=== PATIENT | male | born 1990 | race Caucasian/White ===

== ENCOUNTER 2017-12-07 11:05 | Emergency (ER) | payer MEDICAID ==
[~2017-12-07] VITALS: Ht 165.1 cm; Wt 69.0 kg
[2017-12-07] MEDS ORDERED: IPRATROPIUM/ALBUTEROL 0.5-3(2.5)MG/3ML NEB HHN ONE (12:00)
[2017-12-07] MEDS ORDERED: AZITHROMYCIN 500 MG TABLET PO ONE (12:00)
[2017-12-07] MEDS ORDERED: IBUPROFEN 600MG TABLET PO ONE (12:00)
[2017-12-07] MEDS ORDERED: PREDNISONE 20MG TABLET PO ONE (12:00)
[2017-12-07 16:34] VITALS: BP 123/76
== END 2017-12-07 16:35 | disposition home or self-care (01) ==
LOC: ER 11:19
DX: S20.212A Contusion of left front wall of thorax, initial encounter (principal); J40 Bronchitis, not specified as acute or chronic; F12.10 Cannabis abuse, uncomplicated; F17.210 Nicotine dependence, cigarettes, uncomplicated; Y08.89XA Assault by other specified means, initial encounter; Y93.89 Activity, other specified; Y92.89 Other specified places as the place of occurrence of the external cause; Y99.8 Other external cause status
CPT/HCPCS: 71045; 71250; 93005; 94640; 99284; 99406; J7512; J7620

== ENCOUNTER 2018-04-28 17:19 | Emergency (ER) | payer MEDICAID ==
[~2018-04-28] VITALS: Ht 165.1 cm; Wt 80.0 kg
[2018-04-28] MEDS ORDERED: IBUPROFEN 600MG TABLET PO ONE (19:30)
[2018-04-28 19:51] VITALS: BP 124/78
== END 2018-04-28 19:59 | disposition home or self-care (01) ==
LOC: ER 17:19
DX: S20.212A Contusion of left front wall of thorax, initial encounter (principal); V03.99XA Pedestrian with other conveyance injured in collision with car, pick-up truck or van, unspecified whether traffic or nontraffic accident, initial encounter; Y93.55 Activity, bike riding; Y92.410 Unspecified street and highway as the place of occurrence of the external cause
CPT/HCPCS: 99283

== ENCOUNTER 2019-02-24 01:05 | Emergency (ER) | payer MEDICAID ==
[~2019-02-24] VITALS: Ht 167.6 cm; Wt 63.0 kg
[2019-02-24] MEDS ORDERED: DIPHENHYDRAMINE 25MG CAPSULE PO ONE (03:00)
[2019-02-24 03:30] VITALS: BP 121/79
== END 2019-02-24 03:36 | disposition home or self-care (01) ==
LOC: ER 01:05
DX: L29.8 Other pruritus (principal); R21 Rash and other nonspecific skin eruption; F12.10 Cannabis abuse, uncomplicated
CPT/HCPCS: 99282; Q0163

== ENCOUNTER 2019-04-25 17:07 | Emergency (ER) | payer MEDICAID, MEDICARE ==
[~2019-04-25] VITALS: Ht 165.1 cm; Wt 79.0 kg
[2019-04-25] MEDS ORDERED: ONDANSETRON HCL 4MG/2ML INJ IV STA (17:48)
[2019-04-25] MEDS ORDERED: MORPHINE SULFATE 4 MG/ML CPJ (NOT FOR IM USE) IV STA (17:48)
[2019-04-25] MEDS ORDERED: SODIUM CHLORIDE 0.9% 1,000 ML IV ONE (17:48)
[2019-04-25 20:30] VITALS: BP 116/71
== END 2019-04-25 20:34 | disposition home or self-care (01) ==
LOC: ER 17:07
DX: S52.515A Nondisplaced fracture of left radial styloid process, initial encounter for closed fracture (principal); S52.615A Nondisplaced fracture of left ulna styloid process, initial encounter for closed fracture; F12.10 Cannabis abuse, uncomplicated; V03.10XA Pedestrian on foot injured in collision with car, pick-up truck or van in traffic accident, initial encounter; Y93.89 Activity, other specified; Y92.488 Other paved roadways as the place of occurrence of the external cause
CPT/HCPCS: 29125; 73080; 73090; 96374; 96375; 99283; J2270; J2405; J7030; Z7610

== ENCOUNTER 2019-04-26 05:36 | Emergency (ER) | payer MEDICAID, MEDICARE ==
[~2019-04-26] VITALS: Ht 170.2 cm; Wt 73.0 kg
[2019-04-26] MEDS ORDERED: MORPHINE SULFATE 4 MG/ML CPJ (NOT FOR IM USE) IV STA (07:04)
[2019-04-26] MEDS ORDERED: MORPHINE SULFATE 10 MG/ML CPJ IM ONE (07:30)
[2019-04-26 10:23] VITALS: BP 121/71
== END 2019-04-26 10:25 | disposition home or self-care (01) ==
LOC: ER 06:05
DX: S52.512A Displaced fracture of left radial styloid process, initial encounter for closed fracture (principal); V09.9XXA Pedestrian injured in unspecified transport accident, initial encounter; Y93.89 Activity, other specified; Y92.89 Other specified places as the place of occurrence of the external cause; Y99.8 Other external cause status
CPT/HCPCS: 29125; 99283; J2270; Z7610; L3670

== ENCOUNTER 2019-07-04 06:02 | Emergency (ER) | payer MEDICARE | END 2019-07-04 06:34 | disposition left against medical advice (07) | LOC: ER 06:02 | DX: Z53.21 Procedure and treatment not carried out due to patient leaving prior to being seen by health care provider (principal) ==

== ENCOUNTER 2019-07-08 15:17 | Emergency (ER) | payer MEDICARE ==
[~2019-07-08] VITALS: Ht 167.6 cm; Wt 63.5 kg
[2019-07-08 15:38] VITALS: BP 150/88
[2019-07-08] MEDS ORDERED: ACETAMINOPHEN 500MG TABLET PO ONE (16:00)
== END 2019-07-08 16:28 | disposition home or self-care (01) ==
LOC: ER 15:17
DX: Z03.818 Encounter for observation for suspected exposure to other biological agents ruled out (principal); B34.9 Viral infection, unspecified; F17.200 Nicotine dependence, unspecified, uncomplicated
CPT/HCPCS: 99281; 99283

== ENCOUNTER 2019-09-26 11:26 | Emergency (ER) | payer MEDICARE ==
[~2019-09-26] VITALS: Ht 167.6 cm; Wt 77.0 kg
[2019-09-26 11:44] VITALS: BP 118/65
== END 2019-09-26 12:20 | disposition left against medical advice (07) ==
LOC: ER 11:26
DX: Z53.21 Procedure and treatment not carried out due to patient leaving prior to being seen by health care provider (principal)

== ENCOUNTER 2019-09-28 11:42 | Emergency (ER) | payer MEDICARE ==
[~2019-09-28] VITALS: Ht 170.2 cm; Wt 72.0 kg
[2019-09-28 12:16] VITALS: BP 140/75
[2019-09-28] MEDS ORDERED: IPRATROPIUM/ALBUTEROL 0.5-3(2.5)MG/3ML NEB HHN ONE (12:45)
[2019-09-28] MEDS ORDERED: ACETAMINOPHEN 325MG TABLET PO ONE (12:45)
== END 2019-09-28 14:02 | disposition home or self-care (01) ==
LOC: ER 12:23
DX: J45.901 Unspecified asthma with (acute) exacerbation (principal); G89.29 Other chronic pain; M54.5 Low back pain; Z76.0 Encounter for issue of repeat prescription; Z91.14 Patient's other noncompliance with medication regimen
CPT/HCPCS: 71045; 94640; 99283; Z7610

== ENCOUNTER 2019-10-03 11:26 | Emergency (ER) | payer MEDICARE ==
[~2019-10-03] VITALS: Ht 170.2 cm; Wt 65.0 kg
[2019-10-03 11:37] VITALS: BP 150/60
[2019-10-03] MEDS ORDERED: IBUPROFEN 600MG TABLET PO ONE (12:15)
== END 2019-10-03 13:55 | disposition home or self-care (01) ==
LOC: ER 11:26
DX: S63.8X1A Sprain of other part of right wrist and hand, initial encounter (principal); Z48.02 Encounter for removal of sutures; J45.909 Unspecified asthma, uncomplicated; X58.XXXA Exposure to other specified factors, initial encounter; Y93.89 Activity, other specified; Y92.018 Other place in single-family (private) house as the place of occurrence of the external cause
CPT/HCPCS: 29125; 73130; 99283

== ENCOUNTER 2019-11-05 08:05 | Emergency (ER) | payer MEDICARE ==
[~2019-11-05] VITALS: Ht 175.3 cm; Wt 70.0 kg
[2019-11-05] MEDS ORDERED: LORAZEPAM 2MG/ML CPJ IM STA (08:31)
[2019-11-05] MEDS ORDERED: OLANZAPINE 10 MG/VIAL IM STA (08:31)
[2019-11-05 09:20] LABS: BASOPHILS % 0.4 % (0.0-2.0); EOSINOPHILS % 0.4 % (0.0-5.0); HEMATOCRIT. 36.6 % (42.0-52.0); HEMOGLOBIN. 12.1 g/dL (14.0-18.0); LYMPHOCYTES % 36.7 % (20.0-50.0); MEAN CORPUSCULAR HEMOGLOBIN 29.2 pg (28.0-32.0); MEAN CORPUSCULAR VOLUME 88.5 fL (80.0-94.0); MEAN PLATELET VOLUME 7.5 fl (7.4-10.4); MONOCYTES % 7.2 % (2.0-8.0); NEUTROPHILS % 55.3 % (40.0-76.0); PLATELET 211 x1000/uL (130-400); RED BLOOD CELL COUNT 4.13 mill/uL (4.7-6.1); RED CELL DISTRIBUTION WIDTH 12.5 % (11.6-14.6)
[2019-11-05 09:27] LABS: CHLORIDE 108 mEq/L (98-107)
[2019-11-05 09:29] LABS: ETHANOL BLOOD < 10 mg/dL
[2019-11-05 10:15] LABS: CLARITY URINE CLEAR (CLEAR); COLOR URINE DK YELLOW (YELLOW); KETONES URINE TRACE (NEGATIVE); LEUKOCYTE ESTERASE URINE TRACE (NEGATIVE); NITRITE URINE NEGATIVE (NEGATIVE); OCCULT BLOOD URINE NEGATIVE (NEGATIVE); PROTEIN URINE 1+ (NEGATIVE); SPECIFIC GRAVITY URINE 1.035 (1.005-1.030)
[2019-11-05 10:25] LABS: *AMPHETAMINES SCREEN URINE PRESUMTIVE POSITIVE (NEGATIVE); *BARBITURATES SCREEN URINE NEGATIVE (NEGATIVE); *BENZODIAZEPINES SCREEN URINE NEGATIVE (NEGATIVE); *COCAINE SCREEN URINE NEGATIVE (NEGATIVE)
[2019-11-05 10:26] LABS: CANNABINOID URINE SCREEN NEGATIVE (NEGATIVE); METHADONE URINE SCREEN NEGATIVE (NEGATIVE); OPIATES URINE SCREEN NEGATIVE (NEGATIVE); PHENCYCLIDINE URINE SCREEN NEGATIVE (NEGATIVE)
[2019-11-05] MEDS ORDERED: SODIUM CHLORIDE 0.9% 1,000 ML IV ONE (16:55)
[2019-11-05 17:45] VITALS: BP 122/75
== END 2019-11-05 17:46 | disposition home or self-care (01) ==
LOC: ER 08:05
DX: Z03.818 Encounter for observation for suspected exposure to other biological agents ruled out (principal); F15.10 Other stimulant abuse, uncomplicated; R41.0 Disorientation, unspecified; J45.909 Unspecified asthma, uncomplicated
CPT/HCPCS: 36415; 80053; 80305; 80320; 81003; 82962; 85025; 93005; 96360; 96372; 99285; C9803; J2060; J3490; J7030; U0003; G0480

== ENCOUNTER 2023-12-13 20:26 | Emergency (ER) | payer MEDICAID, MEDICARE ==
[~2023-12-13] VITALS: Ht 167.6 cm; Wt 73.0 kg
[2023-12-13 20:46] VITALS: BP 141/81; TEMP 98.2; O2SAT 98
[2023-12-13 21:02] VITALS: PULSE 89; RESP 20; O2SAT 98
== END 2023-12-14 00:14 | disposition left against medical advice (07) ==
LOC: ER 20:26
DX: R68.89 Other general symptoms and signs (principal); Z53.21 Procedure and treatment not carried out due to patient leaving prior to being seen by health care provider

== ENCOUNTER 2024-01-07 22:50 | Emergency (ER) | payer MEDICAID ==
[~2024-01-07] VITALS: Ht 167.6 cm; Wt 69.0 kg
[2024-01-07 23:20] VITALS: O2SAT 100
[2024-01-07 23:26] VITALS: TEMP 37.05852; O2SAT 100
[2024-01-08] MEDS ORDERED: KETOROLAC 15MG/ML VIAL IM ONE
[2024-01-08] MEDS: KETOROLAC 15MG/ML VIAL IM NR (00:20)
[2024-01-08 00:30] VITALS: BP 131/85; PULSE 90; RESP 16
[2024-01-08] MEDS ORDERED: CEPH500T MT (01:16)
[2024-01-08] MEDS ORDERED: NAPR-1176 MT (04:26)
== END 2024-01-08 01:45 | disposition home or self-care (01) ==
LOC: ER 22:50
DX: S60.412A Abrasion of right middle finger, initial encounter (principal); M25.531 Pain in right wrist; Z79.1 Long term (current) use of non-steroidal anti-inflammatories (NSAID); W18.39XA Other fall on same level, initial encounter; Y93.89 Activity, other specified; Y92.89 Other specified places as the place of occurrence of the external cause; Y99.8 Other external cause status
CPT/HCPCS: 99283; 73120; J1885

== ENCOUNTER 2024-01-08 03:05 | Emergency (ER) | payer MEDICAID ==
[~2024-01-08] VITALS: Ht 167.6 cm; Wt 69.0 kg
[~2024-01-08 03:05] MED LIST: CEPH500T MT
[2024-01-08] MEDS ORDERED: ACETAMINOPHEN 325MG TABLET PO ONE (03:30)
[2024-01-08 03:43] VITALS: BP 135/80; PULSE 72; RESP 20; TEMP 98.5; O2SAT 100
[2024-01-08] MEDS ORDERED: NAPR-1176 MT (04:26)
== END 2024-01-08 05:01 | disposition home or self-care (01) ==
LOC: ER 03:05
DX: M25.531 Pain in right wrist (principal); F19.90 Other psychoactive substance use, unspecified, uncomplicated
CPT/HCPCS: 99282